=== PATIENT | male | born 2000 | race Caucasian/White ===

== ENCOUNTER 2022-07-28 23:28 | Emergency (ER) | payer BC ==
[~2022-07-28] VITALS: Ht 180.3 cm; Wt 93.0 kg
[2022-07-28 23:35] VITALS: BP_SYST 119
[2022-07-28] MEDS ORDERED: HALOPERIDOL LACTATE 5 MG/ML VIAL IVP ONE (23:45)
[2022-07-28] MEDS ORDERED: DIPHENHYDRAMINE INJ 50 MG/ML VIAL IVP ONE (23:45)
[2022-07-28] MEDS ORDERED: NACL 0.9% 1,000 ML IV ONE (23:45)
--- NOTE | 2022-07-28 23:49 | NUR ---
Pt BIB [facility]/squad [facility] from home with c/o aggresive behavior and non compliance with psych meds x past few days. Pt has PMH of schizophrenia and is currently on Seroquel and Lexapro. Pt placed on a 5150 hold. LASD at bedside at this time. Pt was given 10 mg of Versed en route and is currently sleeping, but easy to arouse. No signs of acute distress. Breathing adequately on RA. VSS.
--- NOTE | 2022-07-29 | NUR ---
Dean mccarty in ED - 07/29/22 at 0610 by [id number] patient in bed fall precaututio maintained vitalstachy HR 120S BPS 120/72 TEMP 97.5
[2022-07-29 00:45] LABS: CALCIUM 9.3 mg/dL (8.4-11.0); CREATININE 1.06 mg/dL (0.55-1.30); POTASSIUM 3.2 mmol/L (3.5-5.1)
[2022-07-29 00:49] LABS: BASOPHILS % (AUTO) 0.3 % (0.0-2.0); EOSINOPHILS % (AUTO) 0.2 % (0.0-4.0); HEMATOCRIT 46.1 % (36-54); HEMOGLOBIN 16.6 g/dL (14.0-18.0); LYMPHOCYTES # (AUTO) 1.4 K/uL (1.0-5.5); LYMPHOCYTES % (AUTO) 18.1 % (20.5-51.5); MEAN CORPUSCULAR HEMOGLOBIN 33 pg (27-31); MEAN CORPUSCULAR HGB CONC 36 % (32-36); MEAN CORPUSCULAR VOLUME 90 fL (79.0-98.0); MONOCYTES # (AUTO) 0.4 K/uL (0.0-1.0); MONOCYTES % (AUTO) 4.8 % (1.7-9.3); NEUTROPHILS # (AUTO) 6.1 K/uL (1.8-7.7); NEUTROPHILS % (AUTO) 76.6 % (40.0-70.0); PLATELET COUNT (AUTO) 286 K/uL (130-430); RED BLOOD CELL COUNT(AUTO) 5.12 MIL/uL (4.2-6.2); RED CELL DISTRIBUTION WIDTH 12.6 % (9.0-15.0)
[2022-07-29 00:51] LABS: ALBUMIN 4.3 g/dL (3.4-4.8); TOTAL BILIRUBIN 0.7 mg/dL (0.0-1.0)
--- NOTE | 2022-07-29 01:00 | NUR ---
PT IS FOR 51:50 HOLD .FALL PRECAUTION MAINTAINED.MEDICATED PER ORDER
--- NOTE | 2022-07-29 01:00 | NUR ---
pt sleeping vitals BPS: 114/80 HR: 92 RR:20 SPO2: 96%
--- NOTE | 2022-07-29 04:50 | NUR ---
Ramirez gonzales agitated and aggresive. pulled out the iv .he tried to run out of the door.Dr ordered seroquel and haloperidol.
[2022-07-29] MEDS ORDERED: QUEtiapine FUMARATE 100 MG TABLET PO ONE (05:45)
[2022-07-29] MEDS ORDERED: QUEtiapine FUMARATE 25 MG TABLET PO ONE (05:45)
[2022-07-29] MEDS ORDERED: QUEtiapine FUMARATE 25 MG TABLET ONE (06:03)
[2022-07-29] MEDS ORDERED: QUEtiapine FUMARATE 100 MG TABLET ONE (06:03)
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
--- NOTE | 2022-07-29 13:30 | NUR ---
REPORT GIVEN TO ANAND AT [facility]IT PART OF [facility] FOR [address]. ALL QUESTIONS ANSWERED. TO SEND ORIGINAL HOLD WITH AMBULANCE CREW. PT CALM AND COOPERATIVE AT THIS TIME. VSS. NAD NOTED. AAOX4. WILL CONT TO MONITOR PT UNTIL AMBULANCE ARRIVES.
[2022-07-29 14:18] LABS: BARBITURATE, URINE NEGATIVE (NEG <=200); BENZODIAZEPINE, URINE NEGATIVE (NEG <=150); CANNABINOID, URINE POSITIVE (NEG <=50); COCAINE, URINE NEGATIVE (NEG <=150); METHAMPHETAMINES SCREEN,URINE NEGATIVE (NEG <=500); OPIATE, URINE NEGATIVE (NEG <=100); PHENCYCLIDINE SCREEN,URINE NEGATIVE (NEG <=25); UR TRICYCLIC ANTIDEPRESSANTS POSITIVE (NEG <=300); URINE AMPHETAMINE NEGATIVE (NEG <=500); URINE METHADONE NEGATIVE (NEG <=200); URINE OXYCODONE SCREEN NEGATIVE (NEG <=100); URINE PROPOXYPHENE SCREEN NEGATIVE (NEG <=300)
[2022-07-29 16:30] VITALS: BP_SYST 124
--- NOTE | 2022-07-29 16:30 | NUR ---
Patient to be transferred to [facility]. Receiving facility has accepting physician and available space. ER physician has signed transfer form. Patient or responsible green party has agreed to transfer and signed form. Patient belongings inventoried and will be sent with patient. Copy of nursing notes, lab reports, EKG, Physicians Orders and X-rays to be sent with patient. Report called to ANAND at receiving facility. Receiving physician is [facility]. [facility]. ETA is NOW.
--- NOTE | 2022-08-16 20:06 | NUR ---
ADDENDUM: Nacl 1000ml start time: 120 end time: 220
== END 2022-07-29 16:30 ==
LOC: SED 23:28
DX: F20.9 Schizophrenia, unspecified (principal); Z79.899 Other long term (current) drug therapy; Z20.822 Contact with and (suspected) exposure to COVID-19
CPT/HCPCS: 99285; 87426; 80307; 80053; 85025; 36415; 96374; 96361; 96375; J1200; J1630; J7030